=== PATIENT | female | born 1945 | race Caucasian/White ===

== ENCOUNTER 2017-08-09 23:03 | Emergency (ER) | payer MEDICARE ==
[~2017-08-09] VITALS: Ht 170.2 cm; Wt 63.5 kg
[~2017-08-09 23:03] MED LIST: BYSTOLIC2.5 MG ORAL; DIOVAN80 MG ORAL
[2017-08-09 23:10] VITALS: BP 158/59
--- NOTE | 2017-08-09 23:16 | Emergency Room Report ---
History of Present Illness General Chief Complaint: Chest Pain Source: Patient, EMS Present Illness HPI Is a 71-year-old female who claimed that she had a heart attack in 2006 at [facility] in [place]. She declined the angiogram. Been treated medically. No issue since then. She was just discharged from [facility] after 9 days of admission for nausea vomiting and diarrhea. She said workup was completely normal. No evidence of any obstruction. She had an MRI done also and was negative. She said that her diarrhea stopped tonight. She developed chest pressure in epigastric area and feeling nauseous for the last 5 hours. Similar symptom when she had heart attack. No radiation. No exertional component. No diaphoresis. she received aspirin and nitroglycerin by EMS. Allergies: Coded Allergies: CODEINE (Verified Allergy, Unknown, 08/09/17) Patient History Past Medical History: see triage record, old chart reviewed, CAD Past Surgical History: other Pertinent Family History: none Social History: Denies: smoking Last Menstrual Period: na Now: No Immunizations: other Reviewed Nursing Documentation: PMH: Agreed, PSxH: Agreed Review of Systems Eye: Denies: eye pain, blurred vision ENT: Denies: ear pain, nose congestion, throat swelling Respiratory: Denies: cough, shortness of breath Cardiovascular: Reports: chest pain, Denies: palpitations Gastrointestinal: Denies: abdominal pain, diarrhea, nausea, vomiting Musculoskeletal: Denies: back pain, joint pain Skin: Denies: rash Neurological: Denies: headache, numbness Endocrine: Denies: increased thirst, increased urine Hematologic/Lymphatic: Denies: easy bruising All Other Systems: negative except mentioned in HPI Physical Exam Vital Signs Date Time Temp Pulse Resp B/P (MAP) Pulse Ox O2 Delivery O2 Flow Rate FiO2 08/09/17 22:58 98.4 82 16 175/75 98 Room Air vitals with high blood pressure Sp02 EP Interpretation: reviewed, normal General Appearance: well appearing, no apparent distress, alert Head: normocephalic, atraumatic Eyes: bilateral eye PERRL, bilateral eye EOMI ENT: hearing grossly normal, normal pharynx Neck: full range of motion, supple, no meningismus Respiratory: chest non-tender, lungs clear, normal breath sounds Cardiovascular #1: regular rate, rhythm, no murmur Gastrointestinal: normal bowel sounds, non tender, no mass, no organomegaly, no bruit, non-distended Musculoskeletal: back normal, gait/station normal, normal range of motion Psychiatric: mood/affect normal Skin: warm/dry Medical Decision Making Diagnostic Impression: Primary Impression: Chest pain Qualified Codes: R07.9 - Chest pain, unspecified ER Course This patient presents with atypical chest pain. Most likely GI related with her vomiting. She had workup at [facility] already and was negative. This is a chronic issue for her. EKG normal. Troponin negative. Per patient, she had a recent stress test in less than 6 months. Was normal. Her backend developer is Dr. Ron Godfrey. I discussed the case with Dr. Holguin, his partner. He knows the patient. Will followup with patient in the office at 9 AM. The patient is stable for discharge. EKG Diagnostic Results Rate: normal Rhythm: NSR ST Segments: no acute changes Rhythm Strip Diag. Results Rhythm Strip Time: 23:15 EP Interpretation: yes Rate: 67 Rhythm: NSR, no PVC's, no ectopy Last Vital Signs Date Time Temp Pulse Resp B/P (MAP) Pulse Ox O2 Delivery O2 Flow Rate FiO2 08/09/17 22:58 98.4 82 16 175/75 98 Room Air Status: improved Disposition: HOME, SELF-CARE Condition: Stable Patient Instructions: Nonspecific Chest Pain Additional Instructions: Followup with your backend developer this morning at 9 AM. Call the office. Return if symptom worsen. YUMIKO RIGGINS M.D. Aug 09, 2017 23:16
[2017-08-09 23:49] LABS: ANION GAP 11 mmol/L (5-15); CALCIUM 9.3 MG/DL (8.5-10.1); CARBON DIOXIDE 23 MMOL/L (21-32); CHLORIDE 99 MMOL/L (98-107); CREATININE 0.9 MG/DL (0.55-1.30); GLOMERULAR FILTRATION RATE > 60 mL/min (>60); POTASSIUM 3.5 MMOL/L (3.5-5.1); SODIUM 133 MMOL/L (136-145)
[2017-08-09 23:50] LABS: BASOPHILS % (AUTO) 0.7 % (0.0-2.0); EOSINOPHILS % (AUTO) 0.6 % (0.0-3.0); LYMPHOCYTES % (AUTO) 19.3 % (20.0-45.0); MEAN CORPUSCULAR HEMOGLOBIN 30.6 PG (27.0-31.0); MEAN CORPUSCULAR HGB CONC 32.3 G/DL (32.0-36.0); MEAN CORPUSCULAR VOLUME 95 FL (80-99); MEAN PLATELET VOLUME 5.6 FL (6.5-10.1); MONOCYTES % (AUTO) 6.9 % (1.0-10.0); NEUTROPHILS % (AUTO) 72.5 % (45.0-75.0); PLATELET COUNT 370 K/UL (150-450); RED CELL DISTRIBUTION WIDTH 10.6 % (11.6-14.8); WHITE BLOOD COUNT 7.2 K/UL (4.8-10.8)
[2017-08-10 00:02] LABS: ALANINE AMINOTRANSFERASE 20 U/L (12-78); ALBUMIN/GLOBULIN RATIO 0.9 (1.0-2.7); ASPARTATE AMINO TRANSFERASE 22 U/L (15-37); CKMB 2.4 NG/ML (0.0-3.6); TOTAL PROTEIN 7.8 G/DL (6.4-8.2)
[2017-08-10 00:19] VITALS: BP 150/68
[2017-08-10 00:50] VITALS: BP 150/68
--- NOTE | 2017-08-10 16:41 | Diagnostic Imaging Report ---
Indication: Chest pain Technique: XRAY Chest 1v Comparison: None Findings: Heart size and mediastinal contours are within normal. Atherosclerotic calcifications noted in the aortic arch. There is no focal consolidation, pneumothorax or pleural effusion. Mild scoliosis Osseous structures demonstrate no acute abnormality. Likely bilateral breast plants. Impression: No radiographic evidence of acute cardiopulmonary disease.
--- NOTE | 2017-08-12 15:16 | Cardiology Report ---
APPROVED REPORT EKG Measurement Heart [id number] Normal sinus rhythm Normal ECG
== END 2017-08-10 00:50 | disposition home or self-care (01) ==
LOC: EDBD 23:03 → EMR 23:37 → CANBEDREQ 08-10 00:32 → EMR 08-10 00:50
DX: R07.9 Chest pain, unspecified (principal); I25.10 Atherosclerotic heart disease of native coronary artery without angina pectoris; I25.2 Old myocardial infarction
CPT/HCPCS: 36415; 71010; 80053; 80307; 82550; 82553; 84484; 85025; 93005; 96374; 99284; J2405